=== PATIENT | female | born 1965 | race Two or more races ===

== ENCOUNTER 2023-08-21 22:41 | Emergency (ER) | payer MEDICAID, OTHER ==
[~2023-08-21] VITALS: Ht 152.4 cm; Wt 80.6 kg
[2023-08-21 23:31] LABS: Urine Bacteria None Seen /hpf (None Seen)
[2023-08-21 23:40] LABS: Urine Amorphous Crystal FEW /hpf (None Seen); Urine Blood Negative /uL (Negative); Urine Clarity Turbid (Clear); Urine Color Light-Yellow (Yellow); Urine Protein, UAD Negative (Negative); Urine Specific Gravity 1.019 (1.001-1.035); Urine Urobilinogen Normal (Negative); Urine WBC 4 /hpf (0 - 5)
[2023-08-21 23:41] LABS: Basophils # (auto) 0.1 10 ^3/uL (0-0.2); Basophils % (auto) 0.8 % (0.0-2.0); Chloride 106 mmol/L (98-107); Eosinophils # (auto) 0.3 10 ^3/uL (0-0.8); Eosinophils % (auto) 2.5 % (0.0-7.0); Hematocrit 42.5 % (36.0-46.0); Hemoglobin 14.6 g/dL (12.2-16.2); Lymphocytes % (auto) 22.8 % (10.0-50.0); Mean Corpuscular Hemoglobin 32.5 pg (28.0-32.0); Mean Corpuscular Hgb Conc. 34.4 g/dL (32.0-36.0); Mean Corpuscular Volume 94.5 fL (80.0-100.0); Monocytes # (auto) 0.9 10 ^3/uL (0-1.3); Monocytes % (auto) 6.8 % (0.0-12.0); Neutrophils # (auto) 8.8 10 ^3/uL (1.6-8.6); Neutrophils % (auto) 67.1 % (37.0-80.0); Nucleated Red Blood Cells % 0.1 %; Potassium 3.8 mmol/L (3.5-5.1); Red Cell Distribution Width 13.6 % (11.8-14.3); Sodium 140 mmol/L (136-145); White Blood Cell 13.1 10^3/uL (4.4-10.8)
[2023-08-21 23:42] LABS: Anion Gap 5 (5-15); Calcium 9.5 mg/dL (8.7-10.4); Carbon Dioxide 29 mmol/L (20-30)
[2023-08-21 23:47] LABS: BUN/Creatinine Ratio 14.7 (10.0-20.0); Blood Urea Nitrogen 10 mg/dL (9-23); Glucose 103 mg/dL (74-106)
[2023-08-22] MEDS: SODIUM CHLORIDE 0.9% 1,000 ML IV ONE (09:35)
[2023-08-22] MEDS: KETOROLAC TROMETH 30 MG/ML 1ML VIAL IV ONE ×2 (09:35)
[2023-08-22] MEDS: ONDANSETRON HCL 4 MG/2 ML VIAL IV ONE ×2 (09:35→09:36)
[2023-08-22 10:06] VITALS: BP 109/61; PULSE 74; RESP 14; TEMP 98.2; O2SAT 97
== END 2023-08-22 10:10 | disposition home or self-care (01) ==
LOC: ER 22:41
DX: S29.011A Strain of muscle and tendon of front wall of thorax, initial encounter (principal); X58.XXXA Exposure to other specified factors, initial encounter; Y93.89 Activity, other specified; Y92.89 Other specified places as the place of occurrence of the external cause; Y99.8 Other external cause status
CPT/HCPCS: 36415; 71046; 74018; 80048; 81001; 85025; 96361; 96374; 96375; 99284; J1885; J2405; J7030